=== PATIENT | male | born 1995 | race Two or more races ===

== ENCOUNTER 2021-11-13 09:45 | Emergency (ER) | payer SELFPAY ==
[~2021-11-13] VITALS: Ht 170.2 cm; Wt 81.6 kg
[2021-11-13 09:53] VITALS: BP 138/88
[2021-11-13] MEDS ORDERED: IBUP800T27 PO (11:07)
[2021-11-13] MEDS ORDERED: IBUPROFEN 800 MG TAB PO ONE (11:15)
== END 2021-11-13 11:38 | disposition home or self-care (01) ==
LOC: ER 09:45
DX: S30.0XXA Contusion of lower back and pelvis, initial encounter (principal); W01.0XXA Fall on same level from slipping, tripping and stumbling without subsequent striking against object, initial encounter; Y93.89 Activity, other specified; Y92.89 Other specified places as the place of occurrence of the external cause; Y99.8 Other external cause status
CPT/HCPCS: 72220

== ENCOUNTER 2021-11-15 15:13 | Emergency (ER) | payer SELFPAY ==
[~2021-11-15] VITALS: Ht 170.2 cm; Wt 81.6 kg
[~2021-11-15 15:13] MED LIST: IBUP800T27 PO
[2021-11-15 21:52] VITALS: BP 132/72
== END 2021-11-15 22:01 | disposition home or self-care (01) ==
LOC: ER 15:13
DX: L02.212 Cutaneous abscess of back [any part, except buttock and flank] (principal); E11.9 Type 2 diabetes mellitus without complications; Z79.1 Long term (current) use of non-steroidal anti-inflammatories (NSAID)
CPT/HCPCS: 82962

== ENCOUNTER 2021-12-08 09:00 | Emergency (ER) | payer MEDICAID ==
[~2021-12-08] VITALS: Ht 170.2 cm; Wt 81.6 kg
[2021-12-08 10:17] LABS: Basophils # (auto) 0.1 10 ^3/uL (0-0.2); Eosinophils # (auto) 0.1 10 ^3/uL (0-0.8); Mean Corpuscular Volume 75.7 fL (80.0-100.0); Monocytes # (auto) 0.4 10 ^3/uL (0-1.3)
[2021-12-08 10:20] LABS: Basophils % (auto) 1.3 % (0.0-2.0); Eosinophils % (auto) 1.2 % (0.0-7.0); Hematocrit 45.3 % (41.0-53.0); Hemoglobin 15.1 g/dL (13.5-17.5); Lymphocytes # (auto) 1.6 10 ^3/uL (0.4-5.4); Lymphocytes % (auto) 27.8 % (10.0-50.0); Mean Corpuscular Hemoglobin 25.1 pg (28.0-32.0); Mean Corpuscular Hgb Conc. 33.2 g/dL (32.0-36.0); Monocytes % (auto) 6.4 % (0.0-12.0); Neutrophils # (auto) 3.7 10 ^3/uL (1.6-8.6); Neutrophils % (auto) 63.3 % (37.0-80.0); Nucleated Red Blood Cells % 0.1 %; Red Blood Cells 5.99 10^6/uL (4.5-5.90); Red Cell Distribution Width 13.5 % (11.8-14.3); White Blood Cell 5.8 10^3/uL (4.4-10.8)
[2021-12-08 10:21] LABS: Albumin 3.8 g/dL (3.4-5.0); Potassium 4.2 mmol/L (3.5-5.1)
[2021-12-08 10:33] LABS: BUN/Creatinine Ratio 18.2; Bilirubin, Total 0.4 mg/dL (0.2-1.0); Total Protein 8.2 g/dL (6.4-8.2)
[2021-12-08 12:22] VITALS: BP 115/78
== END 2021-12-08 12:27 | disposition home or self-care (01) ==
LOC: ER 09:00
DX: F41.9 Anxiety disorder, unspecified (principal); M79.10 Myalgia, unspecified site; E11.65 Type 2 diabetes mellitus with hyperglycemia; Z79.1 Long term (current) use of non-steroidal anti-inflammatories (NSAID)
CPT/HCPCS: 36415; 71046; 80053; 84484; 85025; 93005